=== PATIENT | female | born 1960 | race Caucasian/White ===

== ENCOUNTER 2019-03-19 09:45 | Outpatient (RCR) | payer OTHER, SELFPAY ==
--- NOTE | 2019-01-08 17:52 | PT.OIE ---
Current Diagnoses Mixed incontinence (01/08/19) Other female genital prolapse (01/08/19) Past Surgical History History of third molar tooth extraction Status post dilation and curettage Status post surgery (06/14/10) Status post tonsillectomy and adenoidectomy Status post vaginal hysterectomy (03/02/14) Visit Care Team Role Provider Type Macey Carroll MD Attending Provider Physician Specialty: SENIOR MANAGER ASSET PROTECTION Address: [address] [place] [address], [facility] Email: [email or web address] Physical Therapy Initial Evaluation PT-OP-A Visit Information Start: 01/08/19 09:41 Freq: Status: Active Protocol: Document 01/08/19 09:42 [facility] (Rec: 01/08/19 09:59 [facility] [id number]) Out-Patient Physical Therapy Visit Information Visit Information Visit Type Initial Evaluation Visit Start Time 09:45 Visit Stop Time 10:30 Total Visit Minutes 45 Evaluation Information Evaluation Date 01/08/19 PT-OP-B Current Condition Start: 01/08/19 09:41 Freq: Status: Active Protocol: Document 01/08/19 09:42 [facility] (Rec: 01/08/19 09:59 [facility] [id number]) Current Condition History of Current Condition Onset Date 1 year ago Current Complaints c/o pelvic pressure and frequency of urination History of Current Condition Dayanna reports she had surgery to repair a rectocele and cystocele 2013. After this surgery she underwent a vaginal hysterectomy. She notes the surgery helped with both incontinence and pelvic pressure. In the last year or two she started to feel the bulging again of both the bladder and rectum. She feels as if she voids very frequently and if she drinks a lot of water she will be up all night voiding. At this time she drinks 2-4 glasses of water per day and is up 2-4 times per night to void. Walking at this time causes leakage. She reports being limited with her ability to exercise and she can walk only 1/4 of a mile without feeling like she needs to void. She will sometimes also have fecal incontinence as well. She wont know it is going to happen until she feels it in her underwear. She has had constipation her whole life. Treatment Goals Patient/Caregiver Goals To eliminate incontinence and pelvic pressure Current Functional Impairments (Reported) Functional Limitations- Recreation/ limited in walking distance Hobbies due to urinary urgency and c/o pelvic heaviness PT-OP-C Subjective Start: 01/08/19 09:41 Freq: Status: Active Protocol: Document 01/08/19 09:45 [facility] (Rec: 01/14/19 17:52 [facility] [email or web address]) Patient Questionnaires Pelvic Pain and Urgency/Frequency Patient Symptom Scale Pelvic Pain Score 20 PT-OP-I Pelvic Floor Start: 01/08/19 09:41 Freq: Status: Active Protocol: Document 01/08/19 09:45 [facility] (Rec: 01/14/19 17:52 [facility] [email or web address]) Pelvic Floor Assessment Urine Pelvic Floor Surgery Yes Urinary Symptoms Urge Sensation,Prolapse, Hesitancy,Incomplete Emptying Other Urinary Symptoms straining to pass urine Leakage Size Medium Leakage Cause Cough,Exercise,Lifting,Sneeze, Urge Leaks Per Day frequent Voiding Frequency more than 11 times per day Nocturia 2-4 times Urine Pad Type Panty Liner Pelvic Clock Pelvic Clock 12-3 Atrophy Pelvic Clock 3-6 Atrophy Pelvic Clock 6-9 Atrophy Pelvic Clock 9-12 Atrophy Pelvic Clock Other swelling noted with palpation of the anterior wall of the levator ani Prolapse Rectocele Grade 2 Contraction Ability Voluntary Contraction Weak Voluntary Relaxation Weak Manual Muscle Testing Left 1 Manual Muscle Testing Right 2 Manual Muscle Testing Anterior 1 Manual Muscle Testing Posterior 1 Muscle Endurance (Seconds) 3 PT-OP-Q Treatments Start: 01/08/19 09:41 Freq: Status: Active Protocol: Document 01/08/19 09:45 [facility] (Rec: 01/14/19 17:52 [facility] [email or web address]) Therapeutic Exercises Supine Exercises 1 Supine Exercise Name pelvic floor long holds 5 seconds Reps/Minutes x 10 reps PT-OP-T Assessment and Plan Start: 01/08/19 09:41 Freq: Status: Active Protocol: Document 01/08/19 09:45 [facility] (Rec: 01/14/19 17:52 [facility] [email or web address]) Physical Therapy Assessment Rehab Potential Rehabilitation Potential Excellent Evaluation Complexity Number of Personal Factors/Comorbidities 0 Number of Body Systems Impaired 1-2 Clinical Presentation at Evaluation Stable Impairments Impairments Activity Tolerance,Functional Activities,Strength,Tone Other Impairments urinary leakage and urgency Goals Four Impairment limited functional ability to walk due to increased pelvic pressure/ urgency Tourist Camp Attendant Goal (LTG) Dayanna is able to walk a mile or greater without increased pelvic pressure and having to stop to empty her bladder LTG Duration 8 weeks Three Impairment poor endurance of the pelvic floor Short Term Goal (STG) dayanna is able to sustain a pelvic floor contraction for 10 seconds in supine STG Duration 4 weeks Tourist Camp Attendant Goal (LTG) Dayanna is able to sustain a pelvic floor contractions for 10 seconds in standing LTG Duration 8 weeks Two Impairment pelvic floor weakness Short Term Goal (STG) Improve facilitation of the pelvic floor in all portions of the levator ani and Dayanna is able to feel her pelvic floor contract STG Duration 4 weeks Retirement Goal (LTG) dayanna has improved pelvic floor strength to MMT of grade 3 or better for all portions of the levator ani muscle LTG Duration 8 weeks One Impairment urinary incontinence with exercise, urgency, coughing, sneezing, lifting Tourist Camp Attendant Goal (LTG) Dayanna reports a overall reduction in urinary incontinence and she is able to reduce leakage from constant leakage to little to no complaints of leakage LTG Duration 8 weeks Assessment Summary Assessment Dayanna presents to physical therapy today with symptoms of urinary urgency/frequency and both stress and urge incontinence. She also reports pelvic heaviness and pressure that is workse with standing and exertion but at times can be present all day. She reports she voids very frequently throughout the day and she states she never feels as if she fully empties her bladder. She has a history of anterior posterior repair in 2014, hysterectomy, 3 vaginal deliveries. Other past medical history includes thyroid disorder. With examination today Dayanna tests very weak in her levator ani musculature. She is a grade 1 /5 MMT for the anterior, left, and posterior wall and a 2/5 MMT for the right side. She feels swollen at her urethra but I do not feel a cystocele present. She has decreased sensation with contraction on her left side but is able to feel the right lateral wall contract. Dayanna has poor endurance of the pelvic floor. Treatment will focus on pelvic floor strengthening and endurance training for pelvic organ support, bladder retraining and urge deference technique. The patient will also be educated on bladder irritants and avoiding straining. Physical Therapy Plan Frequency and Duration Frequency of Treatment 1x/Week Duration of Treatment 8 Plan of Care Start Date 01/08/19 Plan of Care End Date 03/05/19 Therapeutic Interventions Therapeutic Interventions Home Exercise Program, Neuromuscular Re-education, Patient/Caregiver Education, Self-Care/Home Management,Soft Tissue Mobilization, Therapeutic Exercises Modalities Biofeedback,Electric Stimulation Next Visit Focus/Plan Next Note Type Treatment Note Next Visit Plan Emg biofeedback for pelvic floor neuro re-education, bladder retraining and urge deference technique
--- NOTE | 2019-01-14 17:55 | PT.OPPOC ---
Current Diagnoses Mixed incontinence (01/08/19) Other female genital prolapse (01/08/19) Visit Care Team Role Provider Type Macey Carroll MD Attending Provider Physician Specialty: SCOURING MACHINE TENDER Address: [address] [place] [address], [id number] Email: [email or web address] Plan Of Care PT-OP-T Assessment and Plan Start: 01/08/19 09:41 Freq: Status: Active Protocol: Document 01/08/19 09:45 [facility] (Rec: 01/14/19 17:52 [facility] [email or web address]) Physical Therapy Assessment Rehab Potential Rehabilitation Potential Excellent Evaluation Complexity Number of Personal Factors/Comorbidities 0 Number of Body Systems Impaired 1-2 Clinical Presentation at Evaluation Stable Impairments Impairments Activity Tolerance,Functional Activities,Strength,Tone Other Impairments urinary leakage and urgency Goals Four Impairment limited functional ability to walk due to increased pelvic pressure/ urgency [facility] Goal (LTG) Mary is able to walk a mile or greater without increased pelvic pressure and having to stop to empty her bladder LTG Duration 8 weeks Three Impairment poor endurance of the pelvic floor Short Term Goal (STG) Mary is able to sustain a pelvic floor contraction for 10 seconds in supine STG Duration 4 weeks [facility] Goal (LTG) Mary is able to sustain a pelvic floor contractions for 10 seconds in standing LTG Duration 8 weeks Two Impairment pelvic floor weakness Short Term Goal (STG) Improve facilitation of the pelvic floor in all portions of the levator ani and Mary is able to feel her pelvic floor contract STG Duration 4 weeks [facility] Goal (LTG) Mary has improved pelvic floor strength to MMT of grade 3 or better for all portions of the levator ani muscle LTG Duration 8 weeks One Impairment urinary incontinence with exercise, urgency, coughing, sneezing, lifting Sales Account Manager Goal (LTG) Mary reports a overall reduction in urinary incontinence and she is able to reduce leakage from constant leakage to little to no complaints of leakage LTG Duration 8 weeks Assessment Summary Assessment Mary presents to physical therapy today with symptoms of urinary urgency/frequency and both stress and urge incontinence. She also reports pelvic heaviness and pressure that is worse with standing and exertion but at times can be present all day. She reports she voids very frequently throughout the day and she states she never feels as if she fully empties her bladder. She has a history of anterior posterior repair in 2014, hysterectomy, 3 vaginal deliveries. Other past medical history includes thyroid disorder. With examination today Mary tests very weak in her Levator ani musculature. She is a grade 1 /5 MMT for the anterior, left, and posterior wall and a 2/5 MMT for the right side. She feels swollen at her urethra but I do not feel a cystocele present. She has decreased sensation with contraction on her left side but is able to feel the right lateral wall contract. Mary has poor endurance of the pelvic floor. Treatment will focus on pelvic floor strengthening and endurance training for pelvic organ support, bladder retraining and urge deference technique. The patient will also be educated on bladder irritants and avoiding straining. Physical Therapy Plan Frequency and Duration Frequency of Treatment 1x/Week Duration of Treatment 8 Plan of Care Start Date 01/08/19 Plan of Care End Date 03/05/19 Therapeutic Interventions Therapeutic Interventions Home Exercise Program, Neuromuscular Re-education, Patient/Caregiver Education, Self-Care/Home Management,Soft Tissue Mobilization, Therapeutic Exercises Modalities Biofeedback,Electric Stimulation Next Visit Focus/Plan Next Note Type Treatment Note Next Visit Plan EMG biofeedback for pelvic floor neuro re-education, bladder retraining and urge deference technique Plan of Care Dates Plan of Care Start Date 01/08/19 Plan of Care End Date 03/05/19
--- NOTE | 2019-01-15 14:17 | PT.OTN ---
Current Diagnoses Mixed incontinence (01/15/19) Other female genital prolapse (01/15/19) Physical Therapy Treatment Note PT-OP-A Visit Information Start: 01/08/19 09:41 Freq: Status: Active Protocol: Document 01/15/19 14:14 [facility] (Rec: 01/15/19 14:17 [facility] [email or web address]) Out-Patient Physical Therapy Visit Information Visit Information Visit Type Treatment Note Visit Start Time 12:00 Visit Stop Time 12:45 Total Visit Minutes 45 Visit Number 2 PT-OP-B Current Condition Start: 01/08/19 09:41 Freq: Status: Active Protocol: Document 01/08/19 09:42 [facility] (Rec: 01/08/19 09:59 [facility] [id number]) Current Condition History of Current Condition Onset Date 1 year ago Current Complaints c/o pelvic pressure and frequency of urination History of Current Condition Mary reports she had surgery to repair a rectocele and cystecle 2014. After this surgery she underwent a vaginal hysterectomy. She notes the surgery helped with both incontinence and pelvic pressure. In the last year or two she started to feel the bulging again of both the bladder and rectum. She feels as if she voids very frequently and if she drinks a lot of water she will be up all night voiding. At this time she drinks 2-4 glasses of water per day and is up 2-4 times per night to void. Walking at this time causes leakage. She reports being limited with her ability to exercise and she can walk only 1/4 of a mile without feeling like she needs to void. She will sometimes also have fecal incontinence as well. She wont know it is going to happen until she feels it in her underware. She has had constipation her whole life. Treatment Goals Patient/Caregiver Goals To eliminate incontinence and pelvic pressure Current Functional Impairments (Reported) Functional Limitations- Recreation/ limited in walking distance Hobbies due to urinary urgency and c/o pelvic heaviness PT-OP-C Subjective Start: 01/08/19 09:41 Freq: Status: Active Protocol: Document 01/15/19 14:14 [facility] (Rec: 01/15/19 14:17 [facility] [email or web address]) OP-PT Subjective Patient Comments Patient Comments pt reports after she is dancing she can tell it is harder for her to emtpy her bladder. She also reports left hip gets tight. She has been working on her exercises PT-OP-I Pelvic Floor Start: 01/08/19 09:41 Freq: Status: Active Protocol: Document 01/08/19 09:45 [facility] (Rec: 01/14/19 17:52 [facility] [email or web address]) Pelvic Floor Assessment Urine Pelvic Floor Surgery Yes Urinary Symptoms Urge Sensation,Prolapse, Hesitancy,Incomplete Emptying Other Urinary Symptoms straining to pass urine Leakage Size Medium Leakage Cause Cough,Exercise,Lifting,Sneeze, Urge Leaks Per Day frequent Voiding Frequency more than 11 times per day Nocturia 2-4 times Urine Pad Type Panty Liner Pelvic Clock Pelvic Clock 12-3 Atrophy Pelvic Clock 3-6 Atrophy Pelvic Clock 6-9 Atrophy Pelvic Clock 9-12 Atrophy Pelvic Clock Other swelling noted with palpation of the anterior wall of the levator ani Prolapse Rectocele Grade 2 Contraction Ability Voluntary Contraction Weak Voluntary Relaxation Weak Manual Muscle Testing Left 1 Manual Muscle Testing Right 2 Manual Muscle Testing Anterior 1 Manual Muscle Testing Posterior 1 Muscle Endurance (Seconds) 3 PT-OP-Q Treatments Start: 01/08/19 09:41 Freq: Status: Active Protocol: Document 01/15/19 14:14 [facility] (Rec: 01/15/19 14:17 [facility] [email or web address]) Therapeutic Exercises Supine Exercises 5 Supine Exercise Name roll outs with theraband Reps/Minutes 3 x 10 reps 4 Supine Exercise Name piriformis stretch 3 Supine Exercise Name happy baby stretch 2 Supine Exercise Name ball squeeze with pelvic floor contraction Comments x 10 Neuro Re-Education Treatment Other Activities 1 Details EMG biofeedback for pelvic floor neuromuscular awareness Comments long holds, quick flicks, bladder retraining with urge deference technique PT-OP-T Assessment and Plan Start: 01/08/19 09:41 Freq: Status: Active Protocol: Document 01/15/19 14:14 [facility] (Rec: 01/15/19 14:17 [facility] [email or web address]) Physical Therapy Assessment Assessment Summary Assessment added in hip stertches as resting tone is around 2.0 uv. Left hip tighther than right , also added in roll outs to egin mobilizing the hip ER Physical Therapy Plan Frequency and Duration Frequency of Treatment 1x/Week Duration of Treatment 8 Plan of Care Start Date 01/08/19 Plan of Care End Date 03/05/19 Next Visit Focus/Plan Next Note Type Treatment Note Next Visit Plan review hip stretches, begin TA facilitation and quadraped Low back stretches
--- NOTE | 2019-01-22 10:48 | PT.OTN ---
Current Diagnoses Mixed incontinence (01/22/19) Other female genital prolapse (01/22/19) Physical Therapy Treatment Note PT-OP-A Visit Information Start: 01/08/19 09:41 Freq: Status: Active Protocol: Document 01/22/19 09:45 [facility] (Rec: 01/22/19 09:47 [facility] [id number]) Out-Patient Physical Therapy Visit Information Visit Information Visit Type Treatment Note Visit Start Time 09:00 Visit Stop Time 09:45 Total Visit Minutes 45 Visit Number 3 Evaluation Information Evaluation Date 01/08/19 PT-OP-B Current Condition Start: 01/08/19 09:41 Freq: Status: Active Protocol: Document 01/08/19 09:42 [facility] (Rec: 01/08/19 09:59 [facility] [id number]) Current Condition History of Current Condition Onset Date 1 year ago Current Complaints c/o pelvic pressure and frequency of urination History of Current Condition Mary reports she had surgery to repair a rectocele and cystecle 2013. After this surgery she underwent a vaginal hysterectomy. She notes the surgery helped with both incontinence and pelvic pressure. In the last year or two she started to feel the bulging again of both the bladder and rectum. She feels as if she voids very frequently and if she drinks a lot of water she will be up all night voiding. At this time she drinks 2-4 glasses of water per day and is up 2-4 times per night to void. Walking at this time causes leakage. She reports being limited with her ability to exercise and she can walk only 1/4 of a mile without feeling like she needs to void. She will sometimes also have fecal incontinence as well. She wont know it is going to happen until she feels it in her underware. She has had constipation her whole life. Treatment Goals Patient/Caregiver Goals To eliminate incontinence and pelvic pressure Current Functional Impairments (Reported) Functional Limitations- Recreation/ limited in walking distance Hobbies due to urinary urgency and c/o pelvic heaviness PT-OP-C Subjective Start: 01/08/19 09:41 Freq: Status: Active Protocol: Document 01/22/19 09:45 [facility] (Rec: 01/22/19 09:47 [facility] [id number]) OP-PT Subjective Patient Comments Patient Comments feels like she was able to hold her contraction longer now PT-OP-I Pelvic Floor Start: 01/08/19 09:41 Freq: Status: Active Protocol: Document 01/08/19 09:45 [facility] (Rec: 01/14/19 17:52 [facility] [email or web address]) Pelvic Floor Assessment Urine Pelvic Floor Surgery Yes Urinary Symptoms Urge Sensation,Prolapse, Hesitancy,Incomplete Emptying Other Urinary Symptoms straining to pass urine Leakage Size Medium Leakage Cause Cough,Exercise,Lifting,Sneeze, Urge Leaks Per Day frequent Voiding Frequency more than 11 times per day Nocturia 2-4 times Urine Pad Type Panty Liner Pelvic Clock Pelvic Clock 12-3 Atrophy Pelvic Clock 3-6 Atrophy Pelvic Clock 6-9 Atrophy Pelvic Clock 9-12 Atrophy Pelvic Clock Other swelling noted with palpation of the anterior wall of the levator ani Prolapse Rectocele Grade 2 Contraction Ability Voluntary Contraction Weak Voluntary Relaxation Weak Manual Muscle Testing Left 1 Manual Muscle Testing Right 2 Manual Muscle Testing Anterior 1 Manual Muscle Testing Posterior 1 Muscle Endurance (Seconds) 3 PT-OP-Q Treatments Start: 01/08/19 09:41 Freq: Status: Active Protocol: Document 01/22/19 10:44 [facility] (Rec: 01/22/19 10:48 [facility] [email or web address]) Therapeutic Exercises Supine Exercises 7 Supine Exercise Name TA with marches and heel slides 6 Supine Exercise Name hamstring stretch Reps/Minutes hold 1 min each 5 Supine Exercise Name roll outs with theraband Reps/Minutes 3 x 10 reps 4 Supine Exercise Name piriformis stretch 3 Supine Exercise Name happy baby stretch Other Exercises 3 Other Exercise Name wallace pose 2 Other Exercise Name quadruped TA facilitation Reps/Minutes x 10 reps 1 Other Exercise Name quadruped cat cow Reps/Minutes x 10 Neuro Re-Education Treatment Other Activities 1 Details EMG biofeedback for pelvic floor neuromuscular awareness Comments long holds, quick flicks, bladder retraining with urge deference technique added in templates for coordination and eccentric control of the pelvic floor. PT-OP-T Assessment and Plan Start: 01/08/19 09:41 Freq: Status: Active Protocol: Document 01/22/19 10:44 [facility] (Rec: 01/22/19 10:48 [facility] [email or web address]) Physical Therapy Assessment Assessment Summary Assessment average long hold today was 8. 9 with max of 23 uv. Average rest was 2.0 uv. Worked on relaxed awareness of the pelvic floor and TA facilitation today. Pt has a few weeks until her next scheduled visit Physical Therapy Plan Next Visit Focus/Plan Next Note Type Treatment Note Next Visit Plan continue to work on Hip flexibility, strength, pelvic floor facilitation. Work on 10 second holds and add in sit -stand with pelvic floor contraction
--- NOTE | 2019-02-12 21:36 | PT.OTN ---
Current Diagnoses Mixed incontinence (02/12/19) Other female genital prolapse (02/12/19) Physical Therapy Treatment Note PT-OP-A Visit Information Start: 01/08/19 09:41 Freq: Status: Active Protocol: Document 02/12/19 09:45 [facility] (Rec: 02/16/19 21:36 [facility] [email or web address]) Out-Patient Physical Therapy Visit Information Visit Information Visit Type Treatment Note Visit Start Time 09:45 Visit Stop Time 10:30 Total Visit Minutes 45 Visit Number 4 PT-OP-B Current Condition Start: 01/08/19 09:41 Freq: Status: Active Protocol: Document 01/08/19 09:42 [facility] (Rec: 01/08/19 09:59 [facility] [id number]) Current Condition History of Current Condition Onset Date 1 year ago Current Complaints c/o pelvic pressure and frequency of urination History of Current Condition Mary reports she had surgery to repair a rectocele and cystecle 2014. After this surgery she underwent a vaginal hysterectomy. She notes the surgery helped with both incontinence and pelvic pressure. In the last year or two she started to feel the bulging again of both the bladder and rectum. She feels as if she voids very frequently and if she drinks a lot of water she will be up all night voiding. At this time she drinks 2-4 glasses of water per day and is up 2-4 times per night to void. Walking at this time causes leakage. She reports being limited with her ability to exercise and she can walk only 1/4 of a mile without feeling like she needs to void. She will sometimes also have fecal incontinence as well. She wont know it is going to happen until she feels it in her underware. She has had constipation her whole life. Treatment Goals Patient/Caregiver Goals To eliminate incontinence and pelvic pressure Current Functional Impairments (Reported) Functional Limitations- Recreation/ limited in walking distance Hobbies due to urinary urgency and c/o pelvic heaviness PT-OP-C Subjective Start: 01/08/19 09:41 Freq: Status: Active Protocol: Document 02/12/19 09:45 [facility] (Rec: 02/16/19 21:36 [facility] [email or web address]) OP-PT Subjective Patient Comments Patient Comments pt reports she has been voiding less during the night PT-OP-I Pelvic Floor Start: 01/08/19 09:41 Freq: Status: Active Protocol: Document 01/08/19 09:45 [facility] (Rec: 01/14/19 17:52 [facility] [email or web address]) Pelvic Floor Assessment Urine Pelvic Floor Surgery Yes Urinary Symptoms Urge Sensation,Prolapse, Hesitancy,Incomplete Emptying Other Urinary Symptoms straining to pass urine Leakage Size Medium Leakage Cause Cough,Exercise,Lifting,Sneeze, Urge Leaks Per Day frequent Voiding Frequency more than 11 times per day Nocturia 2-4 times Urine Pad Type Panty Liner Pelvic Clock Pelvic Clock 12-3 Atrophy Pelvic Clock 3-6 Atrophy Pelvic Clock 6-9 Atrophy Pelvic Clock 9-12 Atrophy Pelvic Clock Other swelling noted with palpation of the anterior wall of the levator ani Prolapse Rectocele Grade 2 Contraction Ability Voluntary Contraction Weak Voluntary Relaxation Weak Manual Muscle Testing Left 1 Manual Muscle Testing Right 2 Manual Muscle Testing Anterior 1 Manual Muscle Testing Posterior 1 Muscle Endurance (Seconds) 3 PT-OP-Q Treatments Start: 01/08/19 09:41 Freq: Status: Active Protocol: Document 02/12/19 09:45 [facility] (Rec: 02/16/19 21:36 [facility] [email or web address]) Therapeutic Exercises Supine Exercises 7 Supine Exercise Name TA with marches and heel slides 5 Supine Exercise Name roll outs with theraband Reps/Minutes 3 x 10 reps 4 Supine Exercise Name piriformis stretch 3 Supine Exercise Name happy baby stretch 2 Supine Exercise Name ball squeeze with pelvic floor contraction Comments x 10 1 Supine Exercise Name diaphragmatic breathing Standing Exercises 1 Standing Exercise Name standing squat with pelvic floor activation Other Exercises 3 Other Exercise Name wallace pose 2 Other Exercise Name quadruped TA facilitation Reps/Minutes x 10 reps 1 Other Exercise Name quadruped cat cow Reps/Minutes x 10 Neuro Re-Education Treatment Other Activities 1 Details EMG biofeedback for pelvic floor neuromuscular awareness Comments long holds, quick flicks, bladder retraining with urge deference technique added in templates for coordination and eccentric control of the pelvic floor. PT-OP-T Assessment and Plan Start: 01/08/19 09:41 Freq: Status: Active Protocol: Document 02/12/19 09:45 [facility] (Rec: 02/16/19 21:36 [facility] [email or web address]) Physical Therapy Assessment Assessment Summary Assessment Resting tone decreased today to baseline, reviewed Urge technique and progressed abdominal strengthening Physical Therapy Plan Next Visit Focus/Plan Next Note Type Treatment Note Next Visit Plan continue to work on Hip flexibility, strength, pelvic floor facilitation.
--- NOTE | 2019-02-19 12:44 | PT.OTN ---
Current Diagnoses Mixed incontinence (02/19/19) Other female genital prolapse (02/19/19) Physical Therapy Treatment Note PT-OP-A Visit Information Start: 01/08/19 09:41 Freq: Status: Active Protocol: Document 02/19/19 09:43 [facility] (Rec: 02/19/19 09:44 [facility] [id number]) Out-Patient Physical Therapy Visit Information Visit Information Visit Type Treatment Note Visit Start Time 09:45 Visit Stop Time 10:30 Total Visit Minutes 45 Visit Number 5 PT-OP-B Current Condition Start: 01/08/19 09:41 Freq: Status: Active Protocol: Document 01/08/19 09:42 [facility] (Rec: 01/08/19 09:59 [facility] [id number]) Current Condition History of Current Condition Onset Date 1 year ago Current Complaints c/o pelvic pressure and frequency of urination History of Current Condition Mary reports she had surgery to repair a rectocele and cystecle 2014. After this surgery she underwent a vaginal hysterectomy. She notes the surgery helped with both incontinence and pelvic pressure. In the last year or two she started to feel the bulging again of both the bladder and rectum. She feels as if she voids very frequently and if she drinks a lot of water she will be up all night voiding. At this time she drinks 2-4 glasses of water per day and is up 2-4 times per night to void. Walking at this time causes leakage. She reports being limited with her ability to exercise and she can walk only 1/4 of a mile without feeling like she needs to void. She will sometimes also have fecal incontinence as well. She wont know it is going to happen until she feels it in her underware. She has had constipation her whole life. Treatment Goals Patient/Caregiver Goals To eliminate incontinence and pelvic pressure Current Functional Impairments (Reported) Functional Limitations- Recreation/ limited in walking distance Hobbies due to urinary urgency and c/o pelvic heaviness PT-OP-C Subjective Start: 01/08/19 09:41 Freq: Status: Active Protocol: Document 02/19/19 09:43 [facility] (Rec: 02/19/19 10:32 [facility] [id number]) OP-PT Subjective Patient Comments Patient Comments pt reports she tried to drink water with dancing but experieced more frequency and more leaking. PT-OP-I Pelvic Floor Start: 01/08/19 09:41 Freq: Status: Active Protocol: Document 01/08/19 09:45 [facility] (Rec: 01/14/19 17:52 [facility] [email or web address]) Pelvic Floor Assessment Urine Pelvic Floor Surgery Yes Urinary Symptoms Urge Sensation,Prolapse, Hesitancy,Incomplete Emptying Other Urinary Symptoms straining to pass urine Leakage Size Medium Leakage Cause Cough,Exercise,Lifting,Sneeze, Urge Leaks Per Day frequent Voiding Frequency more than 11 times per day Nocturia 2-4 times Urine Pad Type Panty Liner Pelvic Clock Pelvic Clock 12-3 Atrophy Pelvic Clock 3-6 Atrophy Pelvic Clock 6-9 Atrophy Pelvic Clock 9-12 Atrophy Pelvic Clock Other swelling noted with palpation of the anterior wall of the levator ani Prolapse Rectocele Grade 2 Contraction Ability Voluntary Contraction Weak Voluntary Relaxation Weak Manual Muscle Testing Left 1 Manual Muscle Testing Right 2 Manual Muscle Testing Anterior 1 Manual Muscle Testing Posterior 1 Muscle Endurance (Seconds) 3 PT-OP-Q Treatments Start: 01/08/19 09:41 Freq: Status: Active Protocol: Document 02/19/19 09:43 [facility] (Rec: 02/19/19 10:32 [facility] [id number]) Therapeutic Exercises Supine Exercises 4 Supine Exercise Name piriformis stretch 3 Supine Exercise Name happy baby stretch 1 Supine Exercise Name diaphragmatic breathing Standing Exercises 1 Standing Exercise Name standing squat with pelvic floor activation Other Exercises 5 Other Exercise Name standing against the wall pelvic floor contraction 4 Other Exercise Name modified down dog stretch 3 Other Exercise Name wallace pose 2 Other Exercise Name quadruped TA facilitation Reps/Minutes x 10 reps 1 Other Exercise Name quadruped cat cow Reps/Minutes x 10 Neuro Re-Education Treatment Other Activities 1 Details EMG biofeedback for pelvic floor neuromuscular awareness Comments long holds, quick flicks, bladder retraining with urge deference technique added in templates for coordination and eccentric control of the pelvic floor. PT-OP-T Assessment and Plan Start: 01/08/19 09:41 Freq: Status: Active Protocol: Document 02/19/19 09:43 [facility] (Rec: 02/19/19 10:32 [facility] [id number]) Physical Therapy Assessment Assessment Summary Assessment able to feel the standing pelvic floor contraction now. Still feels like she will leak with dancing or walking if she drinks too much water Physical Therapy Plan Next Visit Focus/Plan Next Note Type Treatment Note Next Visit Plan continue to work on Hip flexibility, strength, pelvic floor facilitation.
--- NOTE | 2019-02-27 15:09 | PT.OTN ---
Current Diagnoses Mixed incontinence (02/26/19) Other female genital prolapse (02/26/19) Physical Therapy Treatment Note PT-OP-A Visit Information Start: 01/08/19 09:41 Freq: Status: Active Protocol: Document 02/26/19 09:45 [facility] (Rec: 02/27/19 15:08 [facility] [email or web address]) Out-Patient Physical Therapy Visit Information Visit Information Visit Type Treatment Note Visit Start Time 09:45 Visit Stop Time 10:30 Total Visit Minutes 45 Visit Number 6 PT-OP-B Current Condition Start: 01/08/19 09:41 Freq: Status: Active Protocol: Document 01/08/19 09:42 [facility] (Rec: 01/08/19 09:59 [facility] [id number]) Current Condition History of Current Condition Onset Date 1 year ago Current Complaints c/o pelvic pressure and frequency of urination History of Current Condition Mary reports she had surgery to repair a rectocele and cystecle 2014. After this surgery she underwent a vaginal hysterectomy. She notes the surgery helped with both incontinence and pelvic pressure. In the last year or two she started to feel the bulging again of both the bladder and rectum. She feels as if she voids very frequently and if she drinks a lot of water she will be up all night voiding. At this time she drinks 2-4 glasses of water per day and is up 2-4 times per night to void. Walking at this time causes leakage. She reports being limited with her ability to exercise and she can walk only 1/4 of a mile without feeling like she needs to void. She will sometimes also have fecal incontinence as well. She wont know it is going to happen until she feels it in her underware. She has had constipation her whole life. Treatment Goals Patient/Caregiver Goals To eliminate incontinence and pelvic pressure Current Functional Impairments (Reported) Functional Limitations- Recreation/ limited in walking distance Hobbies due to urinary urgency and c/o pelvic heaviness PT-OP-C Subjective Start: 01/08/19 09:41 Freq: Status: Active Protocol: Document 02/26/19 10:09 [facility] (Rec: 02/26/19 10:09 [facility] [id number]) OP-PT Subjective Patient Comments Patient Comments pt reportsless pelvic pressure this week. She saw Doctor Carroll this am. and has been dealing with depression. Dr. Carroll working on a referral for her for a new medication Patient Reported Progress Improving PT-OP-I Pelvic Floor Start: 01/08/19 09:41 Freq: Status: Active Protocol: Document 01/08/19 09:45 [facility] (Rec: 01/14/19 17:52 [facility] [email or web address]) Pelvic Floor Assessment Urine Pelvic Floor Surgery Yes Urinary Symptoms Urge Sensation,Prolapse, Hesitancy,Incomplete Emptying Other Urinary Symptoms straining to pass urine Leakage Size Medium Leakage Cause Cough,Exercise,Lifting,Sneeze, Urge Leaks Per Day frequent Voiding Frequency more than 11 times per day Nocturia 2-4 times Urine Pad Type Panty Liner Pelvic Clock Pelvic Clock 12-3 Atrophy Pelvic Clock 3-6 Atrophy Pelvic Clock 6-9 Atrophy Pelvic Clock 9-12 Atrophy Pelvic Clock Other swelling noted with palpation of the anterior wall of the levator ani Prolapse Rectocele Grade 2 Contraction Ability Voluntary Contraction Weak Voluntary Relaxation Weak Manual Muscle Testing Left 1 Manual Muscle Testing Right 2 Manual Muscle Testing Anterior 1 Manual Muscle Testing Posterior 1 Muscle Endurance (Seconds) 3 PT-OP-Q Treatments Start: 01/08/19 09:41 Freq: Status: Active Protocol: Document 02/26/19 09:45 [facility] (Rec: 02/27/19 15:08 [facility] [email or web address]) Therapeutic Exercises Supine Exercises 7 Supine Exercise Name TA with marches and heel slides 6 Supine Exercise Name clam shells Reps/Minutes 2 x 10 reps 5 Supine Exercise Name roll outs with theraband Reps/Minutes 3 x 10 reps 4 Supine Exercise Name piriformis stretch 3 Supine Exercise Name happy baby stretch 2 Supine Exercise Name ball squeeze with pelvic floor contraction Comments x 10 1 Supine Exercise Name diaphragmatic breathing Other Exercises 5 Other Exercise Name standing against the wall pelvic floor contraction 4 Other Exercise Name modified down dog stretch 3 Other Exercise Name wallace pose 2 Other Exercise Name quadruped TA facilitation Reps/Minutes x 10 reps 1 Other Exercise Name quadruped cat cow Reps/Minutes x 10 PT-OP-T Assessment and Plan Start: 01/08/19 09:41 Freq: Status: Active Protocol: Document 02/26/19 09:45 [facility] (Rec: 02/27/19 15:08 [facility] [email or web address]) Physical Therapy Assessment Goals Four Impairment limited functional abilty to walk due to increased pelvic pressure/ urgency Mcc Goal (LTG) Mary is able to walk a mile or greater without increased pelvic pressure and having to stop to empty her bladder Still noting pressure, is planning on trying the posie impressa over the counter bladder supports LTG Duration 8 weeks Three Impairment poor endurance of the pelvic floor Short Term Goal (STG) mary is able to sustain a pelvic floor contraction for 10 seconds in supine GOAL MET STG Duration 4 weeks Mcc Goal (LTG) Mary is able to sustain a pelvic floor contractions for 10 seconds in standing GOOD PROGRESS LTG Duration 8 weeks Two Impairment pelvic floor weakness Short Term Goal (STG) Improve facilitation of the pelvic floor in all portions of the levator ani and Mary is able to feel her pelvic floor contract In supine Mary is able to fully feel her pelvic floor, in standing this is still difficult for her STG Duration 4 weeks Mcc Goal (LTG) mary has improved pelvic floor strength to MMT of grade 3 or better for all portions of the levator ani muscle Good progress LTG Duration 8 weeks One Impairment urinary incontinence with exercise, urgency, coughing, sneezing, lifting Clothing Consultant Goal (LTG) Mary reports a overall reduction in urinary incontinence and she is able to reduce leakage from constant leakage to little to no complaints of leakage Some progress but slow LTG Duration 8 weeks Progress Towards Goals Progress Towards Goals Slow Progress due to Activity Tolerance Progress Comments up unit this visit Mary was still noting pelvic pressure. She is demonstrating improved strength but still has been noting the frequency and urgency Assessment Summary Assessment decreased complaints of pressure today but pt also hasn't been dancing as much this past week. She hasn't had a chance to try out the tempory over the counter pessary but notes she will this next week. Physical Therapy Plan Frequency and Duration Frequency of Treatment 1x/Week Duration of Treatment 8 Plan of Care Start Date 02/26/19 Plan of Care End Date 04/30/19 Therapeutic Interventions Therapeutic Interventions Home Exercise Program, Neuromuscular Re-education, Patient/Caregiver Education, Self-Care/Home Management,Soft Tissue Mobilization, Therapeutic Exercises Modalities Biofeedback,Electric Stimulation Next Visit Focus/Plan Next Note Type Treatment Note Next Visit Plan continue to work on Hip flexibility, strength, pelvic floor facilitation. Standing pelvic floor contractions with endurance training
--- NOTE | 2019-02-27 15:09 | PT.OPPOC ---
Current Diagnoses Mixed incontinence (02/26/19) Other female genital prolapse (02/26/19) Visit Care Team Role Provider Type CONNER Cam Primary Care Provider Advanced Utilization Engineer Specialty: Family Practice Address: [address] [place] [address], [id number] Email: [email or web address] Macey Carroll MD Attending Provider Physician Specialty: ARBORIST Address: [address] [place] [address], [id number] Email: [email or web address] Plan Of Care PT-OP-T Assessment and Plan Start: 01/08/19 09:41 Freq: Status: Active Protocol: Document 02/26/19 09:45 [facility] (Rec: 02/27/19 15:08 [facility] [email or web address]) Physical Therapy Assessment Goals Four Impairment limited functional ability to walk due to increased pelvic pressure/ urgency Automobile Leasing Supervisor Goal (LTG) Dayanna is able to walk a mile or greater without increased pelvic pressure and having to stop to empty her bladder Still noting pressure, is planning on trying the poise impressa over the counter bladder supports LTG Duration 8 weeks Three Impairment poor endurance of the pelvic floor Short Term Goal (STG) dayanna is able to sustain a pelvic floor contraction for 10 seconds in supine GOAL MET STG Duration 4 weeks Automobile Leasing Supervisor Goal (LTG) Dayanna is able to sustain a pelvic floor contractions for 10 seconds in standing GOOD PROGRESS LTG Duration 8 weeks Two Impairment pelvic floor weakness Short Term Goal (STG) Improve facilitation of the pelvic floor in all portions of the levator ani and Dayanna is able to feel her pelvic floor contract In supine Dayanna is able to fully feel her pelvic floor, in standing this is still difficult for her STG Duration 4 weeks Fdc Goal (LTG) dayanna has improved pelvic floor strength to MMT of grade 3 or better for all portions of the levator ani muscle Good progress LTG Duration 8 weeks One Impairment urinary incontinence with exercise, urgency, coughing, sneezing, lifting Fdc Goal (LTG) Dayanna reports a overall reduction in urinary incontinence and she is able to reduce leakage from constant leakage to little to no complaints of leakage Some progress but slow LTG Duration 8 weeks Progress Towards Goals Progress Towards Goals Slow Progress due to Activity Tolerance Progress Comments up unit this visit Dayanna was still noting pelvic pressure. She is demonstrating improved strength but still has been noting the frequency and urgency Assessment Summary Assessment decreased complaints of pressure today but pt also hasn't been dancing as much this past week. She hasn't had a chance to try out the temporary over the counter bladder support but notes she will this next week. Physical Therapy Plan Frequency and Duration Frequency of Treatment 1x/Week Duration of Treatment 8 Plan of Care Start Date 02/26/19 Plan of Care End Date 04/30/19 Therapeutic Interventions Therapeutic Interventions Home Exercise Program, Neuromuscular Re-education, Patient/Caregiver Education, Self-Care/Home Management,Soft Tissue Mobilization, Therapeutic Exercises Modalities Biofeedback,Electric Stimulation Next Visit Focus/Plan Next Note Type Treatment Note Next Visit Plan continue to work on Hip flexibility, strength, pelvic floor facilitation. Standing pelvic floor contractions with endurance training Plan of Care Dates Plan of Care Start Date 02/26/19 Plan of Care End Date 04/30/19
--- NOTE | 2019-03-11 17:18 | PT.OTN ---
Current Diagnoses Mixed incontinence (03/11/19) Other female genital prolapse (03/11/19) Physical Therapy Treatment Note PT-OP-A Visit Information Start: 01/08/19 09:41 Freq: Status: Active Protocol: Document 03/11/19 15:57 [facility] (Rec: 03/11/19 17:18 [facility] [email or web address]) Out-Patient Physical Therapy Visit Information Visit Information Visit Type Treatment Note Visit Start Time 10:30 Visit Stop Time 11:15 Total Visit Minutes 45 Visit Number 7 PT-OP-B Current Condition Start: 01/08/19 09:41 Freq: Status: Active Protocol: Document 01/08/19 09:42 [facility] (Rec: 01/08/19 09:59 [facility] [id number]) Current Condition History of Current Condition Onset Date 1 year ago Current Complaints c/o pelvic pressure and frequency of urination History of Current Condition Mary reports she had surgery to repair a rectocele and cystecle 2014. After this surgery she underwent a vaginal hysterectomy. She notes the surgery helped with both incontinence and pelvic pressure. In the last year or two she started to feel the bulging again of both the bladder and rectum. She feels as if she voids very frequently and if she drinks a lot of water she will be up all night voiding. At this time she drinks 2-4 glasses of water per day and is up 2-4 times per night to void. Walking at this time causes leakage. She reports being limited with her ability to exercise and she can walk only 1/4 of a mile without feeling like she needs to void. She will sometimes also have fecal incontinence as well. She wont know it is going to happen until she feels it in her underware. She has had constipation her whole life. Treatment Goals Patient/Caregiver Goals To eliminate incontinence and pelvic pressure Current Functional Impairments (Reported) Functional Limitations- Recreation/ limited in walking distance Hobbies due to urinary urgency and c/o pelvic heaviness PT-OP-C Subjective Start: 01/08/19 09:41 Freq: Status: Active Protocol: Document 03/11/19 15:57 [facility] (Rec: 03/11/19 17:18 [facility] [email or web address]) OP-PT Subjective Patient Comments Patient Comments pt reports her pelvic pressure is a little better this past week. PT-OP-I Pelvic Floor Start: 01/08/19 09:41 Freq: Status: Active Protocol: Document 01/08/19 09:45 [facility] (Rec: 01/14/19 17:52 [facility] [email or web address]) Pelvic Floor Assessment Urine Pelvic Floor Surgery Yes Urinary Symptoms Urge Sensation,Prolapse, Hesitancy,Incomplete Emptying Other Urinary Symptoms straining to pass urine Leakage Size Medium Leakage Cause Cough,Exercise,Lifting,Sneeze, Urge Leaks Per Day frequent Voiding Frequency more than 11 times per day Nocturia 2-4 times Urine Pad Type Panty Liner Pelvic Clock Pelvic Clock 12-3 Atrophy Pelvic Clock 3-6 Atrophy Pelvic Clock 6-9 Atrophy Pelvic Clock 9-12 Atrophy Pelvic Clock Other swelling noted with palpation of the anterior wall of the levator ani Prolapse Rectocele Grade 2 Contraction Ability Voluntary Contraction Weak Voluntary Relaxation Weak Manual Muscle Testing Left 1 Manual Muscle Testing Right 2 Manual Muscle Testing Anterior 1 Manual Muscle Testing Posterior 1 Muscle Endurance (Seconds) 3 PT-OP-Q Treatments Start: 01/08/19 09:41 Freq: Status: Active Protocol: Document 03/11/19 15:57 [facility] (Rec: 03/11/19 17:18 [facility] [email or web address]) Therapeutic Exercises Supine Exercises 7 Supine Exercise Name TA with marches and heel slides 6 Supine Exercise Name clam shells Reps/Minutes 2 x 10 reps 4 Supine Exercise Name piriformis stretch 3 Supine Exercise Name happy baby stretch 2 Supine Exercise Name ball squeeze with pelvic floor contraction Comments x 10 1 Supine Exercise Name diaphragmatic breathing Standing Exercises 1 Standing Exercise Name standing squat with pelvic floor activation Other Exercises 7 Other Exercise Name single leg squats Comments SI unlocking with right sided single leg squat. Work on down double up si 6 Other Exercise Name standing single leg balance with hip activation 3 Other Exercise Name wallace pose 2 Other Exercise Name quadruped TA facilitation Reps/Minutes x 10 reps Comments with opposite arm and leg lifts 1 Other Exercise Name quadruped cat cow Reps/Minutes x 10 PT-OP-T Assessment and Plan Start: 01/08/19 09:41 Freq: Status: Active Protocol: Document 03/11/19 15:57 [facility] (Rec: 03/11/19 17:18 [facility] [email or web address]) Physical Therapy Assessment Assessment Summary Assessment pt doing better with decreased pelvic pressure. Added in standing single leg squats with stabilization to help with dancing. Also talked about arch supports for her feet as she tends to pronate Physical Therapy Plan Frequency and Duration Frequency of Treatment 1x/Week Duration of Treatment 8 Plan of Care Start Date 02/26/19 Plan of Care End Date 04/30/19 Therapeutic Interventions Therapeutic Interventions Home Exercise Program, Neuromuscular Re-education, Patient/Caregiver Education, Self-Care/Home Management,Soft Tissue Mobilization, Therapeutic Exercises Next Visit Focus/Plan Next Note Type Treatment Note Next Visit Plan pt has one visit left in PT. Review standing stabilization exercises next visit and pelvic floor exercises on EMG biofeedback
--- NOTE | 2019-03-23 15:19 | PT.OTN ---
Current Diagnoses Mixed incontinence (03/19/19) Other female genital prolapse (03/19/19) Physical Therapy Treatment Note PT-OP-A Visit Information Start: 01/08/19 09:41 Freq: Status: Active Protocol: Document 03/19/19 09:45 [facility] (Rec: 03/23/19 15:19 [facility] [email or web address]) Out-Patient Physical Therapy Visit Information Visit Information Visit Type Treatment Note Visit Start Time 09:45 Visit Stop Time 10:30 Total Visit Minutes 45 Visit Number 8 Evaluation Information Evaluation Date 01/08/19 PT-OP-B Current Condition Start: 01/08/19 09:41 Freq: Status: Active Protocol: Document 01/08/19 09:42 [facility] (Rec: 01/08/19 09:59 [facility] [id number]) Current Condition History of Current Condition Onset Date 1 year ago Current Complaints c/o pelvic pressure and frequency of urination History of Current Condition Mary reports she had surgery to repair a rectocele and cystecle 2014. After this surgery she underwent a vaginal hysterectomy. She notes the surgery helped with both incontinence and pelvic pressure. In the last year or two she started to feel the bulging again of both the bladder and rectum. She feels as if she voids very frequently and if she drinks a lot of water she will be up all night voiding. At this time she drinks 2-4 glasses of water per day and is up 2-4 times per night to void. Walking at this time causes leakage. She reports being limited with her ability to exercise and she can walk only 1/4 of a mile without feeling like she needs to void. She will sometimes also have fecal incontinence as well. She wont know it is going to happen until she feels it in her underware. She has had constipation her whole life. Treatment Goals Patient/Caregiver Goals To eliminate incontinence and pelvic pressure Current Functional Impairments (Reported) Functional Limitations- Recreation/ limited in walking distance Hobbies due to urinary urgency and c/o pelvic heaviness PT-OP-C Subjective Start: 01/08/19 09:41 Freq: Status: Active Protocol: Document 03/19/19 09:45 [facility] (Rec: 03/23/19 15:19 [facility] [email or web address]) OP-PT Subjective Patient Comments Patient Comments pt notes sheh asn't been experiencing as much pelvic pressure. She woke only 1 xm last night to void. Overall things are a little better PT-OP-I Pelvic Floor Start: 01/08/19 09:41 Freq: Status: Active Protocol: Document 01/08/19 09:45 [facility] (Rec: 01/14/19 17:52 [facility] [email or web address]) Pelvic Floor Assessment Urine Pelvic Floor Surgery Yes Urinary Symptoms Urge Sensation,Prolapse, Hesitancy,Incomplete Emptying Other Urinary Symptoms straining to pass urine Leakage Size Medium Leakage Cause Cough,Exercise,Lifting,Sneeze, Urge Leaks Per Day frequent Voiding Frequency more than 11 times per day Nocturia 2-4 times Urine Pad Type Panty Liner Pelvic Clock Pelvic Clock 12-3 Atrophy Pelvic Clock 3-6 Atrophy Pelvic Clock 6-9 Atrophy Pelvic Clock 9-12 Atrophy Pelvic Clock Other swelling noted with palpation of the anterior wall of the levator ani Prolapse Rectocele Grade 2 Contraction Ability Voluntary Contraction Weak Voluntary Relaxation Weak Manual Muscle Testing Left 1 Manual Muscle Testing Right 2 Manual Muscle Testing Anterior 1 Manual Muscle Testing Posterior 1 Muscle Endurance (Seconds) 3 PT-OP-Q Treatments Start: 01/08/19 09:41 Freq: Status: Active Protocol: Document 03/19/19 09:45 [facility] (Rec: 03/23/19 15:19 [facility] [email or web address]) Therapeutic Exercises Supine Exercises 7 Supine Exercise Name TA with marches and heel slides 6 Supine Exercise Name clam shells Reps/Minutes 2 x 10 reps 4 Supine Exercise Name piriformis stretch 3 Supine Exercise Name happy baby stretch 1 Supine Exercise Name diaphragmatic breathing Standing Exercises 1 Standing Exercise Name standing squat with pelvic floor activation Other Exercises 7 Other Exercise Name single leg squats Comments SI unlocking with right sided single leg squat. Work on down double up si 6 Other Exercise Name standing single leg balance with hip activation 3 Other Exercise Name wallace pose 2 Other Exercise Name quadruped TA facilitation Reps/Minutes x 10 reps Comments with opposite arm and leg lifts 1 Other Exercise Name quadruped cat cow Reps/Minutes x 10 PT-OP-T Assessment and Plan Start: 01/08/19 09:41 Freq: Status: Active Protocol: Document 03/19/19 09:45 [facility] (Rec: 03/23/19 15:19 [facility] [email or web address]) Physical Therapy Assessment Progress Towards Goals Progress Towards Goals Progressing Toward Goals Progress Comments Decreaseing complaints of pelvic pressure now Assessment Summary Assessment I worked with Mary on adding in super feet foot supports today. When we started working on her standing squats she demonstrated a great deal of pronation R>L. She felt more stable with these and will try these in her shoes for dancing. She is independent with her exercises at this time and will be discharged to a [facility] Physical Therapy Plan Discharge Physical Therapy Discharge Comments Pt has finished her Plan of care and will work on her exercises independently at this time. She will follow up should she feel she could benefit from further PT
== END 2019-03-27 10:57 ==
LOC: PHYS 09:45
PROVIDERS: PCP Nurse Practitioner; Visit Provider Obstetrics & Gynecology
DX: N81.89 Other female genital prolapse (principal); N39.46 Mixed incontinence
CPT/HCPCS: 97110; 97112; 97161

== ENCOUNTER → 2019-04-02 10:09 | Outpatient (CLI) | payer OTHER, SELFPAY ==
--- NOTE | 2019-04-02 10:10 | DI.US.S_ITS ---
PROCEDURE: US THYROID INDICATIONS: RIGHT THYROID LUMP TECHNIQUE: Real-time scanning was performed of the thyroid gland, with image documentation. COMPARISON: None. FINDINGS: Right: Thyroid lobe measures 4.0 x 1.3 x 1.3 cm, and is homogeneous in echotexture. Left: Thyroid lobe measures 4.0 x 1.5 x 1.1 cm, and is homogenous in echotexture. Isthmus: 2.6 mm thick. IMPRESSION: Normal thyroid. Dictated by: Christian Prince [facility] Interpreted: Abbi Liang MD on 04/02/2019 at 11:52 Approved by: Abbi Liang MD, PhD on 04/02/2019 at 16:43
== END ==
PROVIDERS: PCP Nurse Practitioner; Visit Provider Nurse Practitioner
DX: E07.9 Disorder of thyroid, unspecified (principal)
CPT/HCPCS: 76536

== ENCOUNTER → 2019-04-09 16:31 | Outpatient (CLI) | payer OTHER, SELFPAY ==
--- NOTE | 2019-04-09 16:32 | DI.MG.S_ITS ---
BILATERAL DIGITAL SCREENING MAMMOGRAM 3D/2D WITH CAD: 04/09/2019 CLINICAL: Routine screening. Comparison is made to exam dated: 08/31/2010 [facility]. The tissue of both breasts is heterogeneously dense. This may lower the sensitivity of mammography. Current study was also evaluated with a Computer Aided Detection (CAD) system. There are grouped fine calcifications in the right breast anterior depth superior region seen on the mediolateral oblique view only. No other significant masses, calcifications, or other findings are seen in either breast. IMPRESSION: INCOMPLETE: NEEDS ADDITIONAL IMAGING EVALUATION The grouped fine calcifications in the right breast are indeterminate. Lateral magnification, spot magnification, and additional views are recommended. This exam was interpreted at Station ID: [id number]. NOTE: For mammograms, a report in lay terms will be sent to the patient. Approximately 15% of breast malignancies will not be visualized mammographically. In the management of a palpable breast mass, a negative mammogram must not discourage biopsy of a clinically suspicious lesion. Electronically Signed By: Tiffanie león/sanya:04/09/2019 20:00:47 letter sent: Additional Imaging Needed ACR BI-RADS Category 0: Incomplete [id number]
== END ==
PROVIDERS: PCP Nurse Practitioner; Visit Provider Nurse Practitioner
DX: Z12.31 Encounter for screening mammogram for malignant neoplasm of breast (principal)
CPT/HCPCS: 77063; 77067

== ENCOUNTER → 2019-04-16 10:15 | Outpatient (CLI) | payer OTHER, SELFPAY ==
[2019-04-16 11:28] LABS: Hemoglobin 14.6 g/dL (12.0-16.0); Mean Corpuscular HGB Conc 33.9 % (30-36); Mean Corpuscular Hemoglobin 30.8 PG (26-34); Mean Corpuscular Volume 90.9 fL (80-100); Platelet Count 213 X10^3/uL (150-400); Red Blood Cell Count 4.73 X10^6/uL (4.0-5.2); Red Cell Distribution Width 13.3 % (11.6-14.8); White Blood Cell Count 5.5 X10^3/uL (4.5-11.0)
[2019-04-16 11:45] LABS: Neutrophils Absolute Manual 3300 /uL (3000-5900); RBC Morphology Normal Morphology; Total Cells Counted 100
[2019-04-16 11:51] LABS: Alanine Aminotransferase 15 IU/L (<35); Albumin 4.2 g/dL (3.5-5.0); Albumin Globulin Ratio 1.5 (1.0-2.8); Alkaline Phosphatase 68 U/L (38-126); Aspartate Aminotransferase 25 IU/L (14-36); BUN Creatinine Ratio 24.3 (6-22); Bilirubin Total 0.7 mg/dL (0.2-1.3); Blood Urea Nitrogen 17 mg/dL (7-17); Calcium 9.3 mg/dL (8.4-10.2); Carbon Dioxide 26 mmol/L (22-32); Chloride 103 mmol/L (98-107); Cholesterol 245 mg/dL (140-199); Estimated Glomerular Filt Rate > 60.0 mL/min (>60); Globulin 2.8 g/dL (1.7-4.1); Glucose 78 mg/dL (80-110); HDL Cholesterol 84 mg/dL (40-60); HEMOLYSIS < 15 (0-50); LDL Cholesterol Calculated 146 mg/dL (<100); Potassium 4.4 mmol/L (3.4-5.1); Sodium 138 mmol/L (137-145); Triglycerides 77 mg/dL (35-150); Uric Acid 3.8 mg/dL (2.5-6.2)
[2019-04-16 12:01] LABS: Vitamin D 25 Hydroxy (D3) 49.2 ng/mL (30.0-100.0)
[2019-04-16 12:07] LABS: Free T3, Triiodothyronine Free 2.91 pg/mL (2.77-5.27); Free T4, Direct Thyroxine 1.13 ng/dL (0.78-2.19)
[2019-04-16 12:20] LABS: Thyroid Stimulating Hormone 2.15 uIU/mL (0.47-4.68)
== END ==
PROVIDERS: PCP Nurse Practitioner; Referring Provider Nurse Practitioner; Visit Provider Nurse Practitioner
DX: E55.9 Vitamin D deficiency, unspecified (principal); E78.5 Hyperlipidemia, unspecified; F32.9 Major depressive disorder, single episode, unspecified; R53.83 Other fatigue; M79.641 Pain in right hand
CPT/HCPCS: 36415; 80053; 80061; 82306; 84439; 84443; 84481; 84550; 85025

== ENCOUNTER → 2019-04-22 14:19 | Outpatient (CLI) | payer OTHER, SELFPAY ==
--- NOTE | 2019-04-22 | DI.MG.S_ITS ---
UNILATERAL RIGHT DIGITAL DIAGNOSTIC MAMMOGRAM 3D/2D WITH ADDITIONAL VIEWS: 04/22/2019 CLINICAL: Additional evaluation requested from prior study. Comparison is made to exam dated: 08/31/2010 [facility]. The tissue of right breast is heterogeneously dense. This may lower the sensitivity of mammography. There are grouped punctate calcifications in the right breast at 7 o'clock anterior depth. There also are grouped punctate calcifications in the right breast central to the nipple posterior depth. No other significant masses or calcifications are seen in the breast. IMPRESSION: PROBABLY BENIGN The grouped punctate calcifications in the right breast at 7 o'clock anterior depth are probably benign. The grouped punctate calcifications in the right breast central to the nipple posterior depth are probably benign. A follow-up mammogram in 6 months is recommended to demonstrate stability. This exam was interpreted at Station ID: [id number]. NOTE: For mammograms, a report in lay terms will be sent to the patient. Approximately 15% of breast malignancies will not be visualized mammographically. In the management of a palpable breast mass, a negative mammogram must not discourage biopsy of a clinically suspicious lesion. Electronically Signed By: Linda Hayden M.D. lk/:04/22/2019 15:14:40 copy to: Macey Carroll copy to: [employer] letter sent: Followup Recommended ACR BI-RADS Category 3: Probably benign [id number]
== END ==
PROVIDERS: PCP Nurse Practitioner; Referring Provider Nurse Practitioner; Visit Provider Nurse Practitioner
DX: R92.1 Mammographic calcification found on diagnostic imaging of breast (principal)
CPT/HCPCS: 77065; G0279

== ENCOUNTER → 2020-04-02 07:50 | Outpatient (CLI) | payer OTHER, SELFPAY ==
[2020-04-02] MEDS: COVID-19 VACC #1, MRNA(MOD) 100 MCG/0.5 ML VIAL IM (07:54)
== END ==
PROVIDERS: PCP Nurse Practitioner; Visit Provider Internal Medicine
DX: Z23 Encounter for immunization (principal)
CPT/HCPCS: 0011A; 91301

== ENCOUNTER → 2020-08-03 12:39 | Outpatient (CLI) | payer OTHER, SELFPAY ==
[2020-08-03 12:48] LABS: Bacteria Urine None Seen
[2020-08-03 13:36] LABS: Appearance Urine UA CLEAR; Bilirubin Urine UA NEGATIVE (NEGATIVE); Color Urine UA YELLOW; Glucose Urine UA NEGATIVE (Negative); Ketones Urine UA NEGATIVE (NEGATIVE); Leukocyte Esterase Urine UA 1+ (NEGATIVE); Nitrite Urine UA NEGATIVE (Negative); Occult Blood Urine UA 2+ (Negative); Protein Urine UA NEGATIVE (Negative); Urobilinogen Urine UA 0.2 E.U./dL (0.2)
[2020-08-03 13:37] LABS: pH Urine UA 5.5 (4.5-8.0)
[2020-08-03 14:11] LABS: Culture Indicated Urine Specimen Cultured; RBC Urine 1-5/HPF (0-5/HPF); Renal Epithelial Cells Urine 0-1/HPF (0-1/HPF); Squamous Epithelial Cell Urine 0-1 /HPF (0-5/HPF); Transitional Epi Cells Urine 0-1/HPF (0-5/HPF); WBC Urine 5-10/HPF (0-5/HPF)
[2020-08-03 18:23] LABS: Estradiol, Total 36.5 pg/mL
== END ==
PROVIDERS: PCP Naturopath; Referring Provider Naturopath; Visit Provider Naturopath
DX: R30.0 Dysuria (principal); Z79.890 Hormone replacement therapy; N95.1 Menopausal and female climacteric states
CPT/HCPCS: 36415; 81001; 82670; 87086